=== PATIENT | male | born 1990 | race African-American/Black ===

== ENCOUNTER 2017-04-04 18:44 | Emergency (ER) | payer OTHER ==
[2017-04-04 18:55] VITALS: BP 115/67; PULSE 61; TEMP 98.6; BMI 21.9
--- NOTE | 2017-04-04 19:46 | PDOC ---
History of Present Illness - General Chief Complaint: Pain Stated Complaint: PAIN Time Seen by Provider: 04/04/17 19:14 History Source: Patient - History of Present Illness Occurred: reports: other Upper Extremity Pain Location: left: hand Past History - Past Medical History Allergies/Adverse Reactions: Allergies Allergy/AdvReac Type Severity Reaction Status Date / Time No Known Allergies Allergy Verified 04/04/17 18:50 Home Medications: Ambulatory Orders Sulfamethoxazole/Trimethoprim [Bactrim Ds -] 1 tab PO BID #14 tablet 09/23/16 Seizures: No - Surgical History Abdominal Surgery: Yes (hernia) - Immunization History Td Vaccination: Yes Immunization Up to Date: Yes - Psycho/Social/Smoking Cessation Hx Anxiety: No Suicidal Ideation: No Smoking Status: No Smoking History: Never smoked Years of Tobacco Use: 0 Have you smoked in the past 12 months: No Number of Cigarettes Smoked Daily: 0 Cigars Per Day: 0 Information on smoking cessation initiated: No Hx Alcohol Use: No Drug/Substance Use Hx: Yes (sabra) Substance Use Type: Marijuana Review of Systems - Review of Systems Constitutional: No: Fever Integumentary: Yes: Other (abrasion) *Physical Exam - Vital Signs Last Vital Signs Temp Pulse Resp BP Pulse Ox 98.6 F 61 18 115/67 100 04/04/17 18:52 04/04/17 18:52 04/04/17 18:52 04/04/17 18:52 04/04/17 18:52 - Physical Exam General Appearance: Yes: Appropriately Dressed. No: Apparent Distress HEENT: positive: Normal Voice Neck: positive: Supple Respiratory/Chest: negative: Respiratory Distress Extremity: positive: Other (healing abrasion to thenar eminence of L palm, no e/ o infxn) Integumentary: positive: Dry, Warm Neurologic: positive: Fully Oriented, Alert, Normal Mood/Affect Medical Decision Making - Medical Decision Making 04/04/17 19:40 26 yo M, no sig hx, here to have dressing placed to hand laceration. Pt reports that while at work 2 days ago, a nail "scraped" L palm and would like dressing placed in ED. Denies worsening pain, discharge or fever. Pt well appearing w/ cutaneous abrasion alone thenar eminence of L palm, no s/ infection. Tetanus UTD. Dressing placed. Reasons to return d/w pt 04/04/17 19:45 04/04/17 19:55 *DC/Admit/Observation/Transfer Diagnosis at time of Disposition: Abrasion of palm of left hand Qualifiers: Encounter type: initial encounter Qualified Code(s): S60.512A - Abrasion of left hand, initial encounter - Discharge Dispostion Disposition: HOME Condition at time of disposition: Good - Patient Instructions Printed Discharge Instructions: DI for Abrasion Additional Instructions: Return to ED for worsening pain, redness, discharge or fever
== END 2017-04-04 20:01 | disposition home or self-care (01) ==
LOC: JERFT 18:44
DX: S60.512A Abrasion of left hand, initial encounter (principal); W45.0XXA Nail entering through skin, initial encounter; Y93.E9 Activity, other interior property and clothing maintenance; Y92.89 Other specified places as the place of occurrence of the external cause; Y99.0 Civilian activity done for income or pay; Y93.89 Activity, other specified
CPT/HCPCS: 99281-25

== ENCOUNTER 2017-08-08 15:30 | Emergency (ER) | payer OTHER ==
[2017-08-08 15:43] VITALS: BP 119/55; PULSE 68; TEMP 97.5; BMI 23.7
--- NOTE | 2017-08-08 16:38 | PDOC ---
History of Present Illness - General Chief Complaint: Bite Stated Complaint: LT LEG PAIN Time Seen by Provider: 08/08/17 16:37 - History of Present Illness Initial Comments: 08/08/17 22:47 did not see this pt. Past History - Past Medical History Allergies/Adverse Reactions: Allergies Allergy/AdvReac Type Severity Reaction Status Date / Time No Known Allergies Allergy Verified 08/08/17 15:33 Home Medications: Ambulatory Orders Sulfamethoxazole/Trimethoprim [Bactrim Ds -] 1 tab PO BID #14 tablet 09/23/16 Chlorhexidine Gluconate [Hibiclens For Decolonization -] 1 applic TP DAILY #1 bottle 08/08/17 Sulfamethoxazole/Trimethoprim [Bactrim *Ds*] 1 each PO BID #14 tablet 08/08/17 Seizures: No - Surgical History Abdominal Surgery: Yes (Umbilical hernia) - Immunization History Td Vaccination: Yes Immunization Up to Date: Yes - Suicide/Smoking/Psychosocial Hx Smoking Status: No Smoking History: Never smoked Years of Tobacco Use: 0 Have you smoked in the past 12 months: No Number of Cigarettes Smoked Daily: 0 Cigars Per Day: 0 Information on smoking cessation initiated: No Hx Alcohol Use: No Drug/Substance Use Hx: No Substance Use Type: Marijuana *Physical Exam - Vital Signs Last Vital Signs Temp Pulse Resp BP Pulse Ox 97.5 F L 68 14 119/55 100 08/08/17 15:33 08/08/17 15:33 08/08/17 15:33 08/08/17 15:33 08/08/17 15:33 *DC/Admit/Observation/Transfer Diagnosis at time of Disposition: Abscess - Discharge Dispostion Disposition: HOME Condition at time of disposition: Stable - Prescriptions Prescriptions: Sulfamethoxazole/Trimethoprim [Bactrim *Ds*] 1 each PO BID #14 tablet Chlorhexidine Gluconate [Hibiclens For Decolonization -] 1 applic TP DAILY #1 bottle - Referrals Referrals: Mike Spangler [Primary Care Provider] - - Patient Instructions Printed Discharge Instructions: DI for Skin Abscess Additional Instructions: Rest, keep area elevated. Avoid strenuous activity or exercise until wound is healed Use hot soaks to area to bring more blood to the surface and encourage drainage May change dressings as needed to keep clean - trying to avoid removal of packing for 2 days. Change his dressing daily until the wound is completely healed. May use Tylenol or Motrin for mild pain relief Use stronger medications as directed and prescribed Continue all medications as prescribed Followup with private physician in 2-3 days for wound check Return to emergency Department for worsening swelling, pain, redness, fevers as needed Mefoxin resistant Staphylococcus aureus is a normal skin bacteria and is mutated to be resistant to penicillin type drugs. The wounds may be draining and there for contagious to other family members. Vigorous handwashing and avoidance of skin contact of draining lesions it is important . All family members Will need to be protected and perform thorough cleaning of linens /towels/clothing. To decontaminate household: Soak in bath; in one half cup of bleach in 1 full tub of water 2 times a week x3 weeks With own scrub Nylon use chlorohexidine soap twice a week to decontaminate skin Clean tub /toilet with bleach wipes after each use Do not use same linens/avoid contact until lesions are healed Followup with private physician/claims associate Take all of Bactrim as directed May use ibuprofen or Tylenol for pain relief Followup with PMD in one week if no resolution Make appointment with claims associate for evaluation when possible - Post Discharge Activity Forms/Work/School Notes: Back to Work
[2017-08-08] MEDS ORDERED: SULFAMETHOXAZOLE/TRIMETHOPRIM 800MG/160MG D.S. TABLET PO ONE (17:05)
[2017-08-08] MEDS ORDERED: IBUPROFEN 600 MG TABLET (FP) PO ONE ×2 (17:06→17:08)
[2017-08-08] MEDS ORDERED: SULFAMETHOXAZOLE/TRIMETHOPRIM 800MG/160MG D.S. TABLET ONE (17:07)
--- NOTE | 2017-08-08 17:12 | PDOC ---
History of Present Illness - General Chief Complaint: Bite Stated Complaint: LT LEG PAIN Time Seen by Provider: 08/08/17 16:37 History Source: Patient Exam Limitations: No Limitations - History of Present Illness Initial Comments: 08/08/17 17:06 Patient here with complaints of sore, red, painful lesion to left lateral lower leg. suffers from multiple episodes of abscesses including axillary and multiple skin abscesses with incision and drainage. States has had multiple same types of lesions but is uncertain as to cause of this one. Was unclear as to possibly been a spider bite. Denies fever, but states is painful Timing/Duration: reports: changing over time, getting worse Severity: Yes: mild, moderate Location: reports: extremities (left leg) Associated Symptoms: reports: flushing. denies: fever Past History - Travel Traveled outside of the country in the last 30 days: No Close contact w/someone who was outside of country & ill: No - Past Medical History Allergies/Adverse Reactions: Allergies Allergy/AdvReac Type Severity Reaction Status Date / Time No Known Allergies Allergy Verified 08/08/17 15:33 Home Medications: Ambulatory Orders Sulfamethoxazole/Trimethoprim [Bactrim Ds -] 1 tab PO BID #14 tablet 09/23/16 Chlorhexidine Gluconate [Hibiclens For Decolonization -] 1 applic TP DAILY #1 bottle 08/08/17 Sulfamethoxazole/Trimethoprim [Bactrim *Ds*] 1 each PO BID #14 tablet 08/08/17 Seizures: No - Surgical History Abdominal Surgery: Yes (Umbilical hernia) - Immunization History Td Vaccination: Yes Immunization Up to Date: Yes - Suicide/Smoking/Psychosocial Hx Smoking Status: No Smoking History: Never smoked Years of Tobacco Use: 0 Have you smoked in the past 12 months: No Number of Cigarettes Smoked Daily: 0 Cigars Per Day: 0 Information on smoking cessation initiated: No Hx Alcohol Use: No Drug/Substance Use Hx: No Substance Use Type: Marijuana Review of Systems - Review of Systems Able to Perform ROS?: Yes Is the patient limited Croatian proficient: Yes Constitutional: Yes: Symptoms Reported, See HPI. No: Fever, Malaise HEENTM: No: Symptoms Reported Respiratory: No: Symptoms reported Musculoskeletal: Yes: See HPI. No: Symptoms Reported, Joint Pain, Muscle Weakness Integumentary: Yes: Symptoms Reported, See HPI, Erythema, Lesions Neurological: Yes: Symptoms reported, See HPI All Other Systems: Reviewed and Negative *Physical Exam - Vital Signs Last Vital Signs Temp Pulse Resp BP Pulse Ox 97.5 F L 68 14 119/55 100 08/08/17 15:33 08/08/17 15:33 08/08/17 15:33 08/08/17 15:33 08/08/17 15:33 - Physical Exam General Appearance: Yes: Nourished, Appropriately Dressed, Apparent Distress HEENT: positive: [place], Normal ENT Inspection, TMs Normal Neck: positive: Supple. negative: Tender Respiratory/Chest: positive: Lungs Clear, Normal Breath Sounds Gastrointestinal/Abdominal: positive: Soft. negative: Tender Integumentary: positive: Normal Color (has multiple areas of scarred lesions to lower extremities), Erythema, Swelling (pointing and scabbed erythematous lesion with fluctuance to lateral left midpoint tibia. 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 Also given lengthy explanation about MRSA, is contagious ability, and its need for skin decontamination. We'll provide prescription for Hibiclens and instructions for use. *DC/Admit/Observation/Transfer Diagnosis at time of Disposition: Abscess - Discharge Dispostion Disposition: HOME Condition at time of disposition: Stable Admit: No - Patient Instructions Printed Discharge Instructions: DI for Skin Abscess Additional Instructions: Rest, keep area elevated. Avoid strenuous activity or exercise until wound is healed Use hot soaks to area to bring more blood to the surface and encourage drainage May change dressings as needed to keep clean - trying to avoid removal of packing for 2 days. Change his dressing daily until the wound is completely healed. May use Tylenol or Motrin for mild pain relief Use stronger medications as directed and prescribed Continue all medications as prescribed Followup with private physician in 2-3 days for wound check Return to emergency Department for worsening swelling, pain, redness, fevers as needed Mefoxin resistant Staphylococcus aureus is a normal skin bacteria and is mutated to be resistant to penicillin type drugs. The wounds may be draining and there for contagious to other family members. Vigorous handwashing and avoidance of skin contact of draining lesions it is important . All family members Will need to be protected and perform thorough cleaning of linens /towels/clothing. To decontaminate household: Soak in bath; in one half cup of bleach in 1 full tub of water 2 times a week x3 weeks With own scrub Nylon use chlorohexidine soap twice a week to decontaminate skin Clean tub /toilet with bleach wipes after each use Do not use same linens/avoid contact until lesions are healed Followup with private physician/warehouseman Take all of Bactrim as directed May use ibuprofen or Tylenol for pain relief Followup with PMD in one week if no resolution Make appointment with warehouseman for evaluation when possible - Post Discharge Activity Forms/Work/School Notes: Back to Work
== END 2017-08-08 17:19 | disposition home or self-care (01) ==
LOC: JERFT 15:30
PROC: 0H9LXZZ Drainage of Left Lower Leg Skin, External Approach (ICD-10-PCS; principal; 2017-08-08)
DX: L02.416 Cutaneous abscess of left lower limb (principal); Z86.14 Personal history of Methicillin resistant Staphylococcus aureus infection
CPT/HCPCS: 10060; 99281-25

== ENCOUNTER 2021-04-13 13:59 | Emergency (ER) | payer OTHER ==
[2021-04-13 14:11] VITALS: BP 108/66; PULSE 64; TEMP 98.4; BMI 22.4
== END 2021-04-13 14:54 | disposition home or self-care (01) ==
LOC: JERFT 13:59
DX: L73.9 Follicular disorder, unspecified (principal)
CPT/HCPCS: 99281-25

== ENCOUNTER → 2022-05-25 | Emergency (ER) | payer OTHER ==
[2022-05-25 17:35] VITALS: BP 135/67; PULSE 86; TEMP 98.8; BMI 23.6
== END ==
LOC: JER 16:56
DX: R51.9 Headache, unspecified (principal); R11.2 Nausea with vomiting, unspecified
CPT/HCPCS: 99281-25